=== PATIENT | female | born 1970 | race Caucasian/White ===

== ENCOUNTER → 2017-11-03 | Day surgery (SDC) | payer SELFPAY ==
[~2017-11-03] VITALS: Ht 167.6 cm; Wt 85.7 kg
[~2017-11-03] MED LIST: IBUPROFEN800 M1 PO; NAPROSYN500 M1 PO; NORCO 5-325 TA1 EACH PO; VITAMIN D1000 UNIT PO
--- NOTE | 2017-11-03 12:23 | Operative Report ---
Operative/Inv Procedure Report Surgery Date: 11/03/17 Name of Procedure: Liposuction trunk thighs with fat transfer to the buttock Pre-Operative Diagnosis: Lipodystrophy trunk thighs Post-Operative Diagnosis: Same Estimated Blood Loss: scant (250) Surgeon/Carbonator: Dylan Leary MD Anesthesia: general endotracheal tube Operative/Procedure Note Note: The patient was counseled in regards the procedure the alternatives the risks and the expected outcomes as relates to request for surgical intervention to treat lipodystrophy of the trunk thighs and displeasure with her buttocks. We talked about the risks and expected outcomes with her anatomy and she was given a SPS informed consents to return signed. She has no questions regarding it today. She was marked in the standing position. An additional discussion was had with the patient in regards to recovery and instructions. Patient has a second stage surgery planned for abdominoplasty and touchups as needed. She will brought to the operating placed supine on the table. Venodyne boots are placed and then general anesthesia was established intravenous antibiotics were given. The the anterior abdominal wall and flank thighs were prepped and draped in usual sterile fashion. Puncture incisions were made in the abdominoplasty zone as well as the mons. Tumescent fluid in the standard formulation was injected into the areas. The patient was put in an extended position at the hips. SAF he technique was used. Liposuction was then carried out with her Inez cannula of the marked areas. She was then turned into the prone position and appropriately padded. She was prepped and draped in usual sterile fashion. Incisions were made were needed and tumescent fluid was instilled and fat was removed. Superficial placement was placed in the buttock and lateral inferior buttock and upper thigh in the superficial plane. Approximately 1100 mL per buttock. Incisions were closed with nylon sutures on the buttock. Pressure dressings were placed on the thighs which of note were accessed through a medial knee incision.
== END ==
LOC: STS 01:48
DX: Z41.1 Encounter for cosmetic surgery (principal); E65 Localized adiposity; F17.200 Nicotine dependence, unspecified, uncomplicated; M19.90 Unspecified osteoarthritis, unspecified site
CPT/HCPCS: C9399; J0131; J0171; J0690; J2001; J2250